=== PATIENT | female | born 1955 | race Caucasian/White ===

== ENCOUNTER → 2022-02-03 | Outpatient (CLI) | payer OTHER | END | disposition home or self-care (01) | LOC: SONOGRAMA 10:38 | PROVIDERS: ATTEND Orthopaedic Surgery | DX: M25.561 Pain in right knee (principal); M25.562 Pain in left knee ==

== ENCOUNTER 2022-12-17 09:27 | Inpatient (IN) | payer OTHER ==
[~2022-12-17] VITALS: Ht 170.2 cm; Wt 107.0 kg
[~2022-12-17 09:27] MED LIST: CARVEDILOL25 M1 PO; CHILDREN'S ASPI81 MG PO; ENDOCET 5-3251 EACH PO; ENTRESTO 97 MG1 EACH; ENTRESTO PO; GABAPENTIN100 MG PO; GABAPENTIN600 MG; HORIZANT600 MG PO; NORFLEX100MG PO; NYSTATIN/TRIAMC15 GM; OPTIMAL D31250 MCG; SPIRONOLACTONE25 MG; TORSEMIDE10 MG PO; VENLAFAXINE HCL75 M2 PO; XARELTO10 MG PO; [UNRECOGNIZED DRUG - OTHER] PO
[2022-12-17] MEDS ORDERED: TORSEMIDE10 MG PO (14:04)
[2022-12-21] MEDS ORDERED: GABAPENTIN600 MG (08:07)
[2022-12-23] MEDS ORDERED: TRAMADOL HCL50 MG PO (13:30)
[2022-12-23] MEDS ORDERED: GABAPENTIN100 MG PO (13:30)
[2022-12-23] MEDS ORDERED: NORFLEX100MG PO (13:30)
[2022-12-23] MEDS ORDERED: XARELTO10 MG PO (13:31)
== END 2022-12-23 16:18 | disposition designated cancer center or children's hospital (05) | DRG 470 ==
LOC: O/R 12-21 06:27 → SURH 12-21 06:27
PROVIDERS: ADMIT Orthopaedic Surgery; ATTEND Orthopaedic Surgery
PROC: 4A12X4Z Monitoring of Cardiac Electrical Activity, External Approach (ICD-10-PCS; 2022-12-21)
PROC: 0SRC0JZ Replacement of Right Knee Joint with Synthetic Substitute, Open Approach (ICD-10-PCS; principal; 2022-12-21 07:00)
DX: M17.11 Unilateral primary osteoarthritis, right knee (principal); D62 Acute posthemorrhagic anemia; M85.661 Other cyst of bone, right lower leg; R26.89 Other abnormalities of gait and mobility; E66.01 Morbid (severe) obesity due to excess calories; I10 Essential (primary) hypertension; G47.33 Obstructive sleep apnea (adult) (pediatric); Z95.810 Presence of automatic (implantable) cardiac defibrillator